=== PATIENT | female | born 1960 | race Caucasian/White ===

== ENCOUNTER 2024-06-23 14:25 | Emergency (ER) | payer OTHER, MEDICARE ==
[2024-06-23 14:32] VITALS: BP 163/77; PULSE 75; RESP 20; TEMP 98.6; BMI 24.2
[2024-06-23] MEDS ORDERED: IBUPROFEN 600 MG TABLET (FP) PO ONE (16:54)
[2024-06-23] MEDS: IBUPROFEN 600 MG TABLET (FP) PO ONE (17:03)
== END 2024-06-23 17:01 | disposition home or self-care (01) ==
LOC: FER 14:25
PROC: 2W3RX1Z Immobilization of Left Lower Leg using Splint (ICD-10-PCS; principal; 2024-06-23)
DX: S82.831A Other fracture of upper and lower end of right fibula, initial encounter for closed fracture (principal); S82.832A Other fracture of upper and lower end of left fibula, initial encounter for closed fracture; X50.1XXA Overexertion from prolonged static or awkward postures, initial encounter; Y93.01 Activity, walking, marching and hiking
CPT/HCPCS: 73610-TC-LT-FY; 73610-TC-RT-FY; 73630-TC-LT; 73630-TC-RT-FY; 99284-25